=== PATIENT | male | born 1985 | race Caucasian/White ===

== ENCOUNTER 2019-12-02 13:27 | Inpatient (IN) | payer BC ==
[~2019-12-02] VITALS: Ht 188 cm; Wt 80.7 kg
[2019-12-02 13:28] VITALS: BP 133/91
[2019-12-02 14:31] LABS: URINE BILIRUBIN NEGATIVE (Negative); URINE BLOOD NEGATIVE (Negative); URINE CLARITY CLEAR; URINE COLOR YELLOW; URINE GLUCOSE-RANDOM* NEGATIVE (Negative); URINE KETONES TRACE (Negative); URINE LEUKOCYTES-REFLEX NEGATIVE (Negative); URINE NITRITE-REFLEX NEGATIVE (Negative); URINE PROTEIN (DIPSTICK) TRACE (Negative); URINE SPECIFIC GRAVITY 1.025 (1.005-1.035); URINE UROBILINOGEN 0.2 E.U./dl (0.2-1.0)
[2019-12-02 14:58] LABS: ABSOLUTE NEUTROPHILS 3.8 thou/uL (1.4-8.2); BASOPHILS 0.3 % (0.0-2.0); HEMATOCRIT 46.1 % (42.0-52.0); HEMOGLOBIN 15.9 gm/dL (14.0-18.0); MCH 29.4 pg (26.0-34.0); MCHC 34.5 g/dL (28.0-37.0); MCV 85.2 fL (80.0-100.0); MONOCYTES 6.2 % (1.0-8.0); PLATELET COUNT 181 thou/uL (150-400); POLYS 69.5 % (36.0-66.0); RBC 5.41 mil/uL (4.50-6.00); RDW 12.1 % (10.5-14.5); WBC 5.4 thou/uL (4.0-11.0)
[2019-12-02 15:00] LABS: AMP/METHAMP Negative (Negative); BARBITURATES Negative (Negative); BENZODIAZEPINES Negative (Negative); COCAINE Negative (Negative); METHADONE Negative (Negative); OPIATES Negative (Negative); PCP Negative (Negative)
[2019-12-02 15:05] LABS: CALCIUM 9.6 mg/dL (8.5-10.1); CREATININE 1.3 mg/dL (0.7-1.3); POTASSIUM 4.1 mmol/L (3.5-5.1)
[2019-12-02 15:11] LABS: ALBUMIN 4.4 g/dL (3.4-5.0); MAGNESIUM 1.9 mg/dL (1.8-2.4); TOTAL BILIRUBIN 0.6 mg/dL (0.2-1.0); TOTAL PROTEIN 7.8 g/dL (6.4-8.2)
[2019-12-02] MEDS ORDERED: BUPROPION XL300 MG PO (17:26)
[2019-12-02 18:03] VITALS: BP 104/69
[2019-12-02 19:14] VITALS: BP 112/72
[2019-12-02 19:37] VITALS: BP 120/81
--- NOTE | 2019-12-02 22:51 | NUR ---
PT ARRIVED TO UNIT APPROX 1939, ADMISSION AND ASSESSMENT COMPLETED. PT A&Ox4, UP AD TORY BUT EDUCATED TO CALL FOR HELP NEEDED SINCE HE REPORTS INCREASED FATIGUE TODAY. DENIES SOB OR NAUSEA. REPORTS GENERAL MALAISE. REPORTS LAST BM WAS DIARRHEA ON SATURDAY, HAD AGAIN TONIGH. TOLERATING CLEAR LIQUID DIET. STARTED ON IV ABX, OBTAINED ORDER TO RESUME HOME MED. NO OTHER CONCERNS, WILL CONTINUE TO MONITOR.
[2019-12-03 00:13] VITALS: BP 95/50
[2019-12-03 04:53] VITALS: BP 107/65
[2019-12-03 06:03] LABS: HEMATOCRIT 39.3 % (42.0-52.0); MCH 29.7 pg (26.0-34.0); MCHC 34.4 g/dL (28.0-37.0); MCV 86.3 fL (80.0-100.0); RBC 4.56 mil/uL (4.50-6.00); RDW 12.2 % (10.5-14.5); WBC 4.3 thou/uL (4.0-11.0)
[2019-12-03 06:14] LABS: HEMOGLOBIN 13.5 gm/dL (14.0-18.0)
[2019-12-03 06:59] LABS: CALCIUM 8.3 mg/dL (8.5-10.1); CREATININE 1.2 mg/dL (0.7-1.3); POTASSIUM 4.1 mmol/L (3.5-5.1)
--- NOTE | 2019-12-03 07:10 | EKG ---
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 RODRIGUEZ : 1985 Requested By: Doris Toscano Order Number: [id number] MD: Al Willingham Measurements Intervals [place] Rate: 70 P: 62 ND: 96 QRS: 66 QRSD: 89 T: 47 QT: 381 QTc: 412 Interpretive Statements Sinus rhythm Short ND interval J Point elev, probable normal early repol pattern Baseline wander in lead(s) V2 No previous ECG available for comparison Electronically Signed On 12-03-2019 7:10:04 CDT by Al Willingham [email or web address] <ELECTRONICALLY SIGNED> By: Al Willingham MD, FAC 12/03/19 0710 1544 1544 Al Willingham MD, [facility] /EPI
[2019-12-03 07:34] VITALS: BP 97/67
--- NOTE | 2019-12-03 10:13 | NUR ---
WENT IN TO THE PT ROOM, BP RUNNING A BIT HYPOTENSIVE THIS MORNING. PT IS WARM/CLAMMY. HAD A COMPLAINT OF PAIN THAT RADIATED FROM LOWER UMBILICUS TO THE L LOWER QUADRANT. HYDROCODONE WAS ORDERED AND ADMINISTERED. FECAL SAMPLE IS TO BE COLLECTED THIS SHIFT, PT EDUCATED ON CURRENT CAREPLAN AND AGREES TO THE TREATMENT. WILL CONTINUE TO MONITOR AND UPDATE NEEDED
[2019-12-03 15:22] VITALS: BP 116/76
[2019-12-03 21:40] VITALS: BP 109/76
[2019-12-04 04:15] VITALS: BP 96/57
--- NOTE | 2019-12-04 05:28 | NUR ---
ASSUMED CARE AT 1900, ASSESSMENT COMPLETED. PT WORKING ON GOLYTELY PREP, REPORTED STOOL BEING CLEAR AROUND MIDNIGHT. IV ABX INFUSING. PT REPORTED MILD ABD PAIN, LARGELY R/T DRINKING THE BOWEL PREP. NPO AT MIDNIGHT FOR COLONOSCOPY TODAY. NO OTHER CONCERNS, WILL CONTINUE TO MONITOR.
[2019-12-04 08:28] VITALS: BP 102/71
[2019-12-04 15:50] VITALS: BP 111/62
[2019-12-04 19:33] VITALS: BP 101/44
--- NOTE | 2019-12-04 21:42 | NUR ---
PT PROGRESSING TOWARDS D/C GOALS. VSS. AFEBRILE. ON PO ABX NOW. SLEEPING PILL GIVEN. NO C/O PAIN. NO S/S DISTRESS. NO DIARRHEA IN HOURS PT STATED.
[2019-12-05 05:08] VITALS: BP 113/63
--- NOTE | 2019-12-05 05:14 | NUR ---
PT PROGRESSING TOWARDS D/C GOALS. VSS AFEBRILE. PT STATES NO LIQUID STOOLS TONIGHT.
[2019-12-05 07:15] VITALS: BP 111/64
[2019-12-05] MEDS ORDERED: FLAGYL500 M1 PO (09:28)
[2019-12-05] MEDS ORDERED: ZOFRAN 4 MG ORAL4 MG PO (09:28)
[2019-12-05 10:14] VITALS: BP 111/64
--- NOTE | 2019-12-05 12:16 | NUR ---
PT DISCHARGED APPROXIMATELY RAOUND 1100, ALL BELONGINGS SENT DOWN WITH THE PT, AT THE TIME OF DISCHARGE PT STATED THAT HE HAD A BM THAT WAS CONSISTENTLY GETTING MORE SOLID. PT'S COLNOSCOPY PROCEDURE RESULT AND FINDINGS WERE SIGNED AND EXPLAINED BY THE RN. ALL DISCHARGE INFORMATION WERE PROVIDED INCLUDING BUT NOT LIMITED TO NEW MEDICATION. DISCHARGE WAS DISCUSSED WITH . PT WAS AGREEABLE TO THE TERMS OF THE DISCHARGE. PT;S CLOTHINGS WERE RETRIEVED FROM THE ED AFTER THE S/O DROPPED IT OFF. NO COMPLAINTS FROM THE PT AT THE TIME OF THE DISCHARGE. CONTINUING TO MONITOR. RN SIGNING OFF
--- NOTE | 2019-12-07 17:06 | PATH ---
[facility] [place] [address] PATHOLOGY RPT PROCEDURE Name: MITCHELL GALEANO ML Room #: 363-P DIS IN M.R.#: [id number] Admission: 12/02/19 Date of : 89 Discharge: 12/05/19 Report #: [id number] Path Case #: [id number] [facility] Accession Number: [id number] . 01 Material submitted: . colon - RANDOM COLON BX . 01 Clinical history: . DIARRHEA, ABD PAIN, R/O MICROSCOPIC COLITIS . 02 Diagnosis: Large intestinal mucosa, random colon, endoscopic biopsy: - Nonspecific reactive changes. - Negative for active colitis. - Negative for microscopic colitis. - Negative for dysplasia or malignancy. (IUV:crop adjuster; 12/07/2019) MBR 12/07/2019 1400 Local . 02 Electronically signed: . Veronica Cadena MD, Pathologist NPI- [id number] . 01 Gross description: . The specimen is received in formalin, labeled "Mitchell Galeano, random colon biopsy, R/O microscopic colitis". Received are four segments of pale ramos soft tissue ranging in size from 0.2 to 0.6 cm in maximum dimensions. The specimen is submitted entirely in cassette A1. (CAA; 12/05/2019) QA/QA 12/05/2019 1215 Local . 02 Pathologist provided ICD-10: R19.7, R10.9 . 02 CPT . 846977 Specimen Comment: A courtesy copy of this report has been sent to [phone] Specimen Comment: [phone] Specimen Comment: Report sent to / DR JAIN Performed at: [address] [id number] MD Truman Patel MD Phone: [phone] Performed at: [address] [id number] [address] [address] PATHOLOGY RPT PROCEDURE Name: YASMEEN GALEANODORENE BULL Room #: 363-P DIS IN M.R.#: [id number] Admission: 12/02/19 Date of : 89 Discharge: 12/05/19 Report #: [id number] Path Case #: [id number] MD Veronica Cadena MD Phone: [phone]
== END 2019-12-05 12:00 | disposition home or self-care (01) | DRG 372 ==
LOC: ER 13:27 → EROBS 18:43 → 3W 18:43
PROVIDERS: Physician Assistant; ADMIT Internal Medicine; ATTEND Internal Medicine
PROC: 0DBG8ZX Excision of Left Large Intestine, Via Natural or Artificial Opening Endoscopic, Diagnostic (ICD-10-PCS; principal; 2019-12-04)
PROC: 0DBF8ZX Excision of Right Large Intestine, Via Natural or Artificial Opening Endoscopic, Diagnostic (ICD-10-PCS; principal; 2019-12-04)
DX: A04.72 Enterocolitis due to Clostridium difficile, not specified as recurrent (principal); R18.8 Other ascites; F41.9 Anxiety disorder, unspecified; K64.8 Other hemorrhoids; F32.9 Major depressive disorder, single episode, unspecified; Z20.828 Contact with and (suspected) exposure to other viral communicable diseases; Z88.2 Allergy status to sulfonamides; Z87.891 Personal history of nicotine dependence
CPT/HCPCS: 10080; 62110; 62900